=== PATIENT | male | born 1935 | race Caucasian/White ===

== ENCOUNTER → 2019-07-13 | Outpatient (CLI) | payer MEDICARE, BC ==
[2019-07-13 11:47] LABS: African American GFR (CKD) >90 (>60 ml/min/1.73 sqM); Anion Gap 10 mmol/L; Blood Urea Nitrogen 16 mg/dL (9-20); Calcium 10.1 mg/dL (8.4-10.2); Carbon Dioxide 29 mmol/L (22-30); Chloride 101 mmol/L (98-107); Glucose 121 mg/dL (74-99); Potassium 4.7 mmol/L (3.5-5.1); Sodium 140 mmol/L (137-145)
[2019-07-13 12:00] LABS: MCH 31.8 pg (25.0-35.0); MCHC 34.3 g/dL (31.0-37.0); MCV 92.8 fL (80.0-100.0); Mean Platelet Volume 6.2; Platelet Count 255 k/uL (150-450); RBC 4.41 m/uL (4.30-5.90); RDW 13.2 % (11.5-15.5); WBC 6.6 k/uL (3.8-10.6)
[2019-07-13 14:07] LABS: Band Neutrophils % 1 %; Basophils # (M) 0.07 k/uL (0-0.2); Eosinophils # (M) 0.73 k/uL (0-0.7); Lymphocytes # (M) 1.39 k/uL (1.0-4.8); Monocytes # (M) 0.73 k/uL (0-1.0); Myelocytes # (M) 0.07 k/uL (0); Myelocytes % 1 %; Neutrophils % (M) 57 %; Nucleated Red Blood Cells 0 /100 WBC (0-0); Total Cells Counted 200
[2019-07-13 14:08] LABS: Poikilocytosis (M) Present
== END | disposition home or self-care (01) ==
LOC: LABPAT 10:41
PROVIDERS: ATTEND Urology
DX: Z01.812 Encounter for preprocedural laboratory examination (principal); N47.1 Phimosis; E11.9 Type 2 diabetes mellitus without complications; I10 Essential (primary) hypertension
CPT/HCPCS: 36415; 80048; 85025; 93005

== ENCOUNTER 2019-07-29 06:09 | Day surgery (SDC) | payer MEDICARE, BC ==
--- NOTE | 2019-07-14 13:36 | P.HPIHPCON ---
History of Present Illness H&P Date: 07/29/19 Chief Complaint: Phimosis 83 yo male with hx of phimosis he elected to proceed with circumcision. I have explained the operation/procedure to the patient, including the risks, benefits, side effects, alternative therapies (including not receiving the proposed chelsie atment or service), the likelihood of the patient achieving his/her goals, and potential recuperation problems for the procedure/sedation/analgesia, as well as any blood products, if indicated. I also explained to the patient the risks, benefits and side effects of the alternatives, as well as the risks related to not receiving the proposed procedure, care, treatment, or services Consent for Procedure: I have explained the operation/procedure to the patient, including the risks, benefits, side effects, alternative therapies (including not receiving the proposed treatment or service), the likelihood of the patient achieving his/her goals, and potential recuperation problems for the procedure/sedation/analgesia, as well as any blood products, if indicated. I also explained to the patient the risks, benefits and side effects of the alternatives, as well as the risks related to not receiving the proposed procedure, care, treatment, or services. - Constitutional Constitutional: Denies chills, Denies fever - Cardiovascular Cardiovascular: Denies chest pain, Denies leg edema, Denies shortness of breath - Respiratory Respiratory: Denies cough, Denies dyspnea Surgical - Exam - General well developed, well nourished, no distress, no pain - Respiratory normal expansion, normal respiratory effort - Abdomen Abdomen: soft, non tender, no distended Assessment and Plan Assessment: 83 yo male with hx of phimosis, he would like to proceed with Circumcision
[2019-07-27 16:12] VITALS: BMI 34.4
[~2019-07-29 06:09] MED LIST: DEXAMETHASONE SOD PHOSPHATE 10 MG/ML 1 ML VIAL IV ONE; HYDROmorphone 0.5 MG/0.5 ML SYRINGE IVP PRN; LACTATED RINGERS 1,000 ML IV SCH; ONDANSETRON 4 MG/2 ML VIAL IVP ONE
[2019-07-29] MEDS ORDERED: LACTATED RINGERS 1,000 ML IV ONE (06:41)
[2019-07-29] MEDS ORDERED: LIDOCAINE 1% 20 ML VIAL (10MG/ML) FOR IV START INTRADERMA ONE (06:43)
[2019-07-29 06:50] LABS: Glucose,Whole Blood 108 mg/dL (75-99)
[2019-07-29] MEDS ORDERED: GLYCOPYRROLATE 0.2 MG/ML 2 ML VIAL ONE (07:27)
[2019-07-29] MEDS ORDERED: PROPOFOL 10 MG/ML 20 ML VIAL IV ONE (07:27)
[2019-07-29] MEDS ORDERED: ePHEDrine SULFATE/0.9% NACL/PF 50 MG/5 ML SYRINGE IV ONE (07:27)
[2019-07-29] MEDS ORDERED: SUCCINYLCHOLINE CHLORIDE 100 MG/5 ML SYR IV ONE (07:27)
[2019-07-29] MEDS ORDERED: PHENYLEPHRINE-0.9% NACL SYG 1 MG/10 ML SYRINGE ONE (07:27)
[2019-07-29] MEDS ORDERED: LIDOCAINE 1% INJ 10MG/ML (20 ML MDV) ONE (07:27)
[2019-07-29] MEDS ORDERED: fentaNYL (PF) 50 MCG/ML 2 ML AMP ONE (07:27)
[2019-07-29] MEDS ORDERED: BUPIVACAINE (PF) 0.5% 30 ML VIAL SQ ONE (07:49)
[2019-07-29] MEDS ORDERED: BACITRACIN 500 UNIT/GM OINT 28.4 GM TUBE TOPICAL ONE (08:19)
[2019-07-29 08:32] VITALS: TEMP 97
[2019-07-29 10:25] VITALS: BP 137/81; PULSE 86; RESP 18
--- NOTE | 2019-07-29 19:07 | P.OP ---
Date of Procedure: 07/29/19 Preoperative Diagnosis: phimosis Postoperative Diagnosis: same Procedure(s) Performed: circumcision Implants: none Surgeon: Edvin Nuñez Estimated Blood Loss (ml): 5 Pathology: other (foreskin) Condition: stable Disposition: PACU Indications for Procedure: 83 yo male with hx of phimosis he elected to proceed with circumcision. I discussed with him the option of trying a steroid cream versus circumcision. Discussed with him the risks from the procedure including bleeding, infection and injury to penis elected to proceed with circumcision I have explained the operation/procedure to the patient, including the risks, benefits, side effects, alternative therapies (including not receiving the proposed treatment or service), the likelihood of the patient achieving his/her goals, and potential recuperation problems for the procedure/sedation/analgesia, as well as any blood products, if indicated. I also explained to the patient the risks, benefits and side effects of the alternatives, as well as the risks related to not receiving the proposed procedure, care, treatment, or services Operative Findings: phimosis, redundant foreskin Description of Procedure: the patient was brought to the operating room, general anesthesia was induced. The patient was placed in supine position and prepped and draped in sterile fashion. A penile block was performed using 0.5% Marcaine plain. The outer and inner incision for the circumcision was marked. Using a scalpel incision was made initially with the outer incision was performed followed by the inner incision. Subcutaneous tissue was dissected using electrocautery. This time the incised foreskin was dissected off of the penis using electrocautery. Hemostasis was achieved using electrocautery. The penile skin was reapproximated using 3-0 Vicryl by placing stitches at each corner. Additional 3-0 chromic stitches was used in simple interrupted fashion in between the Vicryls. Bacitracin was applied on the incision. A sterile Jose was placed on the incision. Patient tolerated procedure well and was taken to PACU in stable condition
== END 2019-07-29 10:20 | disposition home or self-care (01) ==
LOC: OR 06:09
PROVIDERS: ATTEND Urology
DX: N47.1 Phimosis (principal); I10 Essential (primary) hypertension; N40.0 Benign prostatic hyperplasia without lower urinary tract symptoms; E11.9 Type 2 diabetes mellitus without complications; M19.90 Unspecified osteoarthritis, unspecified site; Z87.891 Personal history of nicotine dependence; Z96.659 Presence of unspecified artificial knee joint; Z97.2 Presence of dental prosthetic device (complete) (partial); Z79.84 Long term (current) use of oral hypoglycemic drugs; Z79.82 Long term (current) use of aspirin; Z79.899 Other long term (current) drug therapy
CPT/HCPCS: 88304; 54161; J1100; J0690; J2405; J2001; J3010; J2370; J0330; J2704

== ENCOUNTER 2019-08-02 11:32 | Emergency (ER) | payer MEDICARE, BC ==
[2019-08-02 11:46] VITALS: BP 137/71; PULSE 75; RESP 17; TEMP 98.1
--- NOTE | 2019-08-02 12:45 | ED ---
General Adult HPI <Andrea Slaughter - Last Filed: 08/02/19 12:51> - General Source: patient, RN notes reviewed Mode of arrival: ambulatory Limitations: no limitations <Calvin Simpson - Last Filed: 08/02/19 12:59> - General Chief complaint: Recheck/Abnormal Lab/Rx Stated complaint: post op Male pain Time Seen by Provider: 08/02/19 12:01 - History of Present Illness Initial comments: 83-year-old male presents emergency Department chief complaint of penile pain. Patient had circumcision on by Dr. Quintero, states that he had some bleeding after the surgery in which is still very minimal at this time. Patient states he is very uncomfortable and states that he cannot see what going on. He is concerned about possible infection he states he's extensively bruised at this time. He did contact urology today who stated that there is nobody in office to see him and recommended to him to go to the ER. (Calvin Simpson) - Related Data Home Medications Medication Instructions Recorded Confirmed Aspirin [Adult Low Dose Aspirin EC] 81 mg PO DAILY 07/27/19 07/27/19 Atorvastatin [Lipitor] 20 mg PO HS 07/27/19 07/27/19 Cholecalciferol [Vitamin D3 (25 1,000 unit PO DAILY 07/27/19 07/27/19 Mcg = 1000 Iu)] FLUoxetine HCL 20 mg PO QAM 07/27/19 07/27/19 Ferrous Sulfate [Iron] 325 mg PO DAILY 07/27/19 07/27/19 Furosemide [Lasix] 20 mg PO QAM 07/27/19 07/27/19 Gabapentin [Neurontin] 100 mg PO BID 07/27/19 07/27/19 Lisinopril-Hctz 20-12.5 mg 1 tab PO QAM 07/27/19 07/27/19 [Zestoretic 20-12.5] Mirabegron [Myrbetriq] 25 mg PO QAM 07/27/19 07/27/19 [place]-3 Fatty Acids/Fish Oil [Fish 1 each PO DAILY 07/27/19 07/27/19 Oil 1,000 mg Softgel] Tamsulosin [Flomax] 0.4 mg PO DAILY 07/27/19 07/27/19 amLODIPine BESYLATE 10 mg PO QAM 07/27/19 07/27/19 metFORMIN HCL [Glucophage] 500 mg PO BID 07/27/19 07/27/19 Allergies Allergy/AdvReac Type Severity Reaction Status Date / Time No Known Allergies Allergy Verified 07/27/19 16:12 Review of Systems ROS Other: All systems not noted in ROS Statement are negative. <Andrea Slaughter - Last Filed: 08/02/19 12:51> ROS Other: All systems not noted in ROS Statement are negative. <Calvin Simpson - Last Filed: 08/02/19 12:59> ROS Statement: Those systems with pertinent positive or pertinent negative responses have been documented in the HPI. Past Medical History Past Medical History: Diabetes Mellitus, Hearing Disorder / Deafness, Hyperlipidemia, Hypertension, Osteoarthritis (OA), Pneumonia Additional Past Medical History / Comment(s): Pneumonia X2 15-20 yrs ago. Hx detached left retina 15 yrs ago. Bilateral hearing aid use. History of Any Multi-Drug Resistant Organisms: None Reported Past Surgical History: Joint Replacement, Orthopedic Surgery Additional Past Surgical History / Comment(s): Right knee replacement, broken right leg surgery, left detached retina repair, bilateral rotator cuff repairs, right collar bone spur surgery, right hand surgery, throat surgery. Past Anesthesia/Blood Transfusion Reactions: No Reported Reaction Past Psychological History: No Psychological Hx Reported Smoking Status: Former smoker Past Alcohol Use History: None Reported Past Drug Use History: None Reported - Past Family History Mother Family Medical History: No Reported History <Calvin Simpson - Last Filed: 08/02/19 12:59> General Exam Limitations: no limitations General appearance: alert, in no apparent distress Head exam: Present: atraumatic, normocephalic, normal inspection Eye exam: Present: normal appearance, PERRL, EOMI. Absent: scleral icterus, conjunctival injection, periorbital swelling Respiratory exam: Present: normal lung sounds bilaterally. Absent: respiratory distress, wheezes, rales, rhonchi, stridor Cardiovascular Exam: Present: regular rate, normal rhythm, normal heart sounds. Absent: systolic murmur, diastolic murmur, rubs, gallop, clicks GI/Abdominal exam: Present: soft, normal bowel sounds. Absent: distended, tenderness, guarding, rebound, rigid exam: Absent: normal inspection (There is extensive ecchymosis noted including scrotal and penis, there is sutures in place with no erythema or purulent drainage there is a large hematoma on the left side of the incision) <Calvin Simpson - Last Filed: 08/02/19 12:59> Course Vital Signs 08/02/19 11:43 Temperature 98.1 F Pulse Rate 75 Respiratory 17 Rate Blood Pressure 137/71 O2 Sat by Pulse 97 Oximetry Medical Decision Making <Andrea Slaughter - Last Filed: 08/02/19 12:51> <Calvin Simpson - Last Filed: 08/02/19 12:59> - Medical Decision Making Patient reevaluated by myself, Dr. Slaughter. Patient does have ecchymosis and some mild almost moderate swelling more on the left side of the penis. There is mild tenderness. Case was discussed in detail with Dr. Santoyo, who will follow- up with the patient in the office on . (Andrea Slaughter) Patient updated on discussion with urologist. There is no signs of infection patient has hematoma related to surgery is stable for discharge and close follow-up. (Calvin Simpson) Disposition <Andrea Slaughter - Last Filed: 08/02/19 12:51> Is patient prescribed a controlled substance at d/c from ED?: No Time of Disposition: 12:59 <Calvin Simpson - Last Filed: 08/02/19 12:59> Clinical Impression: Status post routine circumcision, Nontraumatic hematoma of penis Disposition: HOME SELF-CARE Condition: Stable Instructions (If sedation given, give patient instructions): Adult Male Circumcision (DC) Additional Instructions: Please return to the Emergency Department if symptoms worsen or any other co ncerns. Referrals: [facility],Clinic [Primary Care Provider] - 1-2 days
== END 2019-08-02 13:10 | disposition home or self-care (01) ==
LOC: EC 11:32
DX: N48.89 Other specified disorders of penis (principal); E11.9 Type 2 diabetes mellitus without complications; I10 Essential (primary) hypertension; E78.5 Hyperlipidemia, unspecified; M19.90 Unspecified osteoarthritis, unspecified site; Z79.82 Long term (current) use of aspirin; Z79.84 Long term (current) use of oral hypoglycemic drugs; Z79.899 Other long term (current) drug therapy; Z87.891 Personal history of nicotine dependence; Z96.651 Presence of right artificial knee joint; Z98.890 Other specified postprocedural states
CPT/HCPCS: 99283